=== PATIENT | female | born 1970 | race Caucasian/White ===

== ENCOUNTER 2019-09-18 14:44 | Inpatient (IN) | payer MEDICARE, MEDICAID ==
[2019-09-18 22:18] VITALS: BP 127/90
[2019-09-19] MEDS: Multivitamin Tab PO SCH (09:53)
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
[2019-09-20 06:07] LABS: A1C 7.2 % (4.8-5.6)
[2019-09-20] MEDS: Multivitamin Tab PO SCH (08:14)
--- NOTE | 2019-09-20 13:39 | Internal Medicine Prog Note ---
Internal Medicine Subjective - Subjective Service Date: 09/20/19 Patient seen and examined:: without staff Patient is:: awake Per staff patient has:: no adverse event, no episodes of fall Internal Medicine Objective - Results Recent Labs: Laboratory Last Values Triglycerides 118 mg/dL (30-150) 09/19/19 08:57 Cholesterol 191 mg/dL (<200) 09/19/19 08:57 LDL Cholesterol 137 mg/dL (0-129) H 09/19/19 08:57 HDL Cholesterol 39 mg/dL (>55) L 09/19/19 08:57 - Physical Exam Vitals and I&O: Vital Signs Temp 97.7 F 09/20/19 06:24 Pulse 72 09/20/19 06:24 Resp 18 09/20/19 08:00 BP 104/59 09/20/19 06:24 Pulse Ox 97 09/20/19 06:24 Intake & Output 09/19/19 09/20/19 09/20/19 18:59 06:59 18:59 Intake Total 750 Balance 750 Intake: Oral 750 Other: # Voids 3 # Bowel Movements 1 Active Medications: Current Medications Aripiprazole (Abilify) 5 mg PO DAILY JAMAL; Protocol Stop: 11/19/19 08:59 Last Admin: 09/20/19 08:14 Dose: 5 mg Fluoxetine HCl (Prozac) 10 mg PO DAILY JAMAL; Protocol Stop: 11/19/19 08:59 Last Admin: 09/20/19 08:14 Dose: 10 mg Lorazepam (Ativan) 0.5 mg PO Q4HR PRN; Protocol PRN Reason: Anxiety Stop: 10/18/19 22:17 Multivitamins/Vitamin C (Theragran) 1 tab PO DAILY JAMAL Stop: 11/18/19 08:59 Last Admin: 09/20/19 08:14 Dose: 1 tab Zolpidem Tartrate (Ambien) 5 mg PO HS PRN PRN Reason: Insomnia Stop: 11/17/19 22:17 HEENT: NC/AT Neck: Supple Lungs: CTAB Cardiovascular: RRR, Normal S1, Normal S2 Abdomen: soft - Procedures Procedures: Procedures Procedure Code Date DELIVERY 90015 02/12/95 DX ULTRASOUND-GRAV UTER 88.78 02/12/95 MONITORING NOS 75.34 02/12/95 LOW CERVICAL 74.1 02/12/95 Internal Medicine Assmt/Plan - Assessment Assessment: 1. Chronic pain 2. HTN 3. Morbid obesity - Plan Plan: continue supportive care d/w r.n. reviewed complete medical records
--- NOTE | 2019-09-20 15:04 | Progress Notes ---
DATE: 09/20/2019 Case was discussed with staff of the patient, reviewed records. The patient continues to be delusional about what happened prior to admission. Continues to have poor insight in general. The staff reports she refused medications; however, when I talked to her, she said she was not offered any medication. The patient was started yesterday on Abilify and Prozac and will take this morning, so she was correct about that. She has been on Prozac before and I added Abilify because of her delusional thinking and discussed side effects. We will continue outpatient group therapy, milieu therapy, and adjust medications as needed. JOB# [id number] [facility]
[2019-09-21] MEDS: Multivitamin Tab PO SCH (08:13)
--- NOTE | 2019-09-21 13:14 | Progress Notes ---
DATE: 09/21/2019 Case was discussed with staff of the patient, reviewed records. The patient has been compliant with the medication with no side effects, no sedation, no nausea, no extrapyramidal symptoms. She tolerated the medication with no side effects. She is sleeping better, eating better. She continues to be at times, internally preoccupied, unable to make safe plan for self-care. Working on discharge planning as well. We will continue outpatient group therapy, milieu therapy, adjust medication as needed. JOB# [id number]
--- NOTE | 2019-09-21 16:11 | Internal Medicine Prog Note ---
Internal Medicine Subjective - Subjective Service Date: 09/21/19 Patient seen and examined:: without staff Patient is:: awake Per staff patient has:: no adverse event, no episodes of fall Internal Medicine Objective - Results Recent Labs: Laboratory Last Values Triglycerides 118 mg/dL (30-150) 09/19/19 08:57 Cholesterol 191 mg/dL (<200) 09/19/19 08:57 LDL Cholesterol 137 mg/dL (0-129) H 09/19/19 08:57 HDL Cholesterol 39 mg/dL (>55) L 09/19/19 08:57 - Physical Exam Vitals and I&O: Vital Signs Temp 97.8 F 09/21/19 14:00 Pulse 89 09/21/19 14:00 Resp 20 09/21/19 14:00 BP 148/74 09/21/19 14:00 Pulse Ox 97 09/21/19 14:00 Intake & Output 09/20/19 09/21/19 09/21/19 18:59 06:59 18:59 Intake Total 1150 120 Balance 1150 120 Intake: Oral 1150 120 Other: # Voids 3 # Bowel Movements 1 Active Medications: Current Medications Aripiprazole (Abilify) 5 mg PO DAILY JAMAL; Protocol Stop: 11/19/19 08:59 Last Admin: 09/21/19 08:13 Dose: 5 mg Fluoxetine HCl (Prozac) 10 mg PO DAILY JAMAL; Protocol Stop: 11/19/19 08:59 Last Admin: 09/21/19 08:13 Dose: 10 mg Lorazepam (Ativan) 0.5 mg PO Q4HR PRN; Protocol PRN Reason: Anxiety Stop: 10/18/19 22:17 Multivitamins/Vitamin C (Theragran) 1 tab PO DAILY JAMAL Stop: 11/18/19 08:59 Last Admin: 09/21/19 08:13 Dose: 1 tab Zolpidem Tartrate (Ambien) 5 mg PO HS PRN PRN Reason: Insomnia Stop: 11/17/19 22:17 Last Admin: 09/20/19 20:29 Dose: 5 mg HEENT: NC/AT Neck: Supple Lungs: CTAB Cardiovascular: RRR, Normal S1, Normal S2 Abdomen: soft - Procedures Procedures: Procedures Procedure Code Date DELIVERY 28089 02/12/95 DX ULTRASOUND-GRAV UTER 88.78 02/12/95 MONITORING NOS 75.34 02/12/95 LOW CERVICAL 74.1 02/12/95 Internal Medicine Assmt/Plan - Assessment Assessment: 1. Chronic pain 2. HTN 3. Morbid obesity - Plan Plan: continue supportive care d/w r.n. reviewed complete medical records Nutritional Asmnt/Malnutr-PDOC - Dietary Evaluation Malnutrition Findings (Please click <Entered> for more info): Nutritional Asmnt/Malnutrition Start: 09/21/19 13: 30 Text: Status: Complete Freq: Protocol: Document 09/21/19 13:30 DIAMANTE (Rec: 09/21/19 13:33 DIAMANTE [id number]) Nutritional Asmnt/Malnutrition Patient General Information Nutritional Screening Moderate Risk Diagnosis Acute Psychosis Pertinent Medical Hx/Surgical Hx HTN, Morbid Obesity, Chronic Pain Subjective Information Pt is a 49-year-old female admitted on 09/17 d/t hold for DTS and DTO with agitation and confusion. Pt is eating an estimated 100% of meals Per Meal/Nutrition Activity Record . Dietary is currently providing an estimated 1800 kcals and 90 gm Pro to meet 100% kcal and 100+% Pro needs. Visited pt in community room, she was resting with her feet up, has enjoyed the food so far. Stated she does not follow any particular diet and was living with her sister prior to visiting us. Diet Rx was explained to pt, she had no questions. Spoke with pt nurse Hannah regarding Diet recommendation. Recommend adding CCHO to current diet Rx d/t endocrine dysfunction evidenced by labs (09/17) Glucose 134, POC Glucose 124, (09/16) A1c 7.2%. Anthropometrics HT: 55 WT: 337 LB (153.18 kg) ABW: 178 LB (80.91 kg) BMI: 56.20 (Obese, class III) GI/ Skin Integrity GI: WNL, Soft, Large, Non- tender BM: 09/19 x2 I/O: 1270/Not Noted Skin: WNL, Intact Damien: 22 Diet Order: Cardiac Estimated Energy Needs: (Obese , ABW) 7502-9549 kcals (20-25 kcals/ kg) 65-80g Pro (0.8-1.0 g/kg) 0286-4591 ml (20-25 ml/kg) Current Diet Order/ Nutrition Support Cardiac Patient / S.O Can Pertinent Medications Theragran Pertinent Labs 09/18: LDL 137, HDL 39 09/17: Glucose 134, GFR 76, Albumin 3.1, POC Glucose 124 09/16: A1c 7.2% 09/15: Urine Protein 1+ Nutritional Hx/Data Height 1.65 m Height (Calculated Centimeters) 165.1 Current Weight (lbs) 152.861 kg Weight (Calculated Kilograms) 152.9 Weight (Calculated Grams) 685347.6 [facility] Body Weight 125 LB (56.82 kg) % [facility] Body Weight 270 Body Mass Index (BMI) 56.0 Weight Status Morbidly Obese GI Symptoms Last BM 09/19 x2 Usual diet at home Regular Skin Integrity/Comment: Skin: WNL, Intact Damien: 22 Current %PO Good (75-100%) Estimated Nutritional Goals BEE in Kcals: Adj wt of IBW Calories/Kcals/Kg 20-25 Kcals Calculated 2187-8885 Protein: Adj wt of IBW Protein g/k.8-1.0 Protein Calculated 65-80 Fluid: ml 5017-9008 ml (20-25 ml/kg) Nutritional Problem 2. Problem Problem Impaired nutrient utilization Etiology r/t endocrine dysfunction Signs/Symptoms: aeb labs (09/17) Glucose 134, POC Glucose 124, (09/16) A1c 7.2 %. 1. Problem Problem Obese, class III Etiology r/t chronic energy overconsumption Signs/Symptoms: aeb BMI >40 (56.20). Malnutrition Related to Morbid Obesity Malnutrition related to morbid obesity BMI> or equal to 40 Query Text:(Any 1 Criteria met) Malnutrition related to morbid obesity Yes Intervention/Recommendation Comments Recommend adding CCHO to current Diet Rx. Expected Outcomes/Goals Expected Outcomes/Goals 1.PO intake to continue to meet >75% of estimated nutritional needs. 2.Monitor PO intake, wt, nutrition related labs, and skin integrity. 3.Gradual weight loss (0.5-1.0 LB /week) trending toward IBW preferred. 4.F/U as low risk in 7-10 days , 09/27-09/30.
[2019-09-22] MEDS: Multivitamin Tab PO SCH (08:40)
--- NOTE | 2019-09-22 15:43 | Internal Medicine Prog Note ---
Internal Medicine Subjective - Subjective Service Date: 09/22/19 Patient seen and examined:: without staff Patient is:: awake Per staff patient has:: no adverse event, no episodes of fall Internal Medicine Objective - Results Recent Labs: Laboratory Last Values Triglycerides 118 mg/dL (30-150) 09/19/19 08:57 Cholesterol 191 mg/dL (<200) 09/19/19 08:57 LDL Cholesterol 137 mg/dL (0-129) H 09/19/19 08:57 HDL Cholesterol 39 mg/dL (>55) L 09/19/19 08:57 - Physical Exam Vitals and I&O: Vital Signs Temp 97.3 F 09/22/19 14:00 Pulse 80 09/22/19 14:00 Resp 20 09/22/19 14:00 BP 102/65 09/22/19 14:00 Pulse Ox 97 09/22/19 14:00 Intake & Output 09/21/19 09/22/19 09/22/19 18:59 06:59 18:59 Intake Total 1600 240 Balance 1600 240 Intake: Oral 1600 240 Other: # Voids 4 2 # Bowel Movements 1 Active Medications: Current Medications Aripiprazole (Abilify) 5 mg PO DAILY JAMAL; Protocol Stop: 11/19/19 08:59 Last Admin: 09/22/19 08:40 Dose: 5 mg Fluoxetine HCl (Prozac) 10 mg PO DAILY JAMAL; Protocol Stop: 11/19/19 08:59 Last Admin: 09/22/19 08:40 Dose: 10 mg Lorazepam (Ativan) 0.5 mg PO Q4HR PRN; Protocol PRN Reason: Anxiety Stop: 10/18/19 22:17 Multivitamins/Vitamin C (Theragran) 1 tab PO DAILY JAMAL Stop: 11/18/19 08:59 Last Admin: 09/22/19 08:40 Dose: 1 tab Zolpidem Tartrate (Ambien) 5 mg PO HS PRN PRN Reason: Insomnia Stop: 11/17/19 22:17 Last Admin: 09/21/19 20:21 Dose: 5 mg HEENT: NC/AT Neck: Supple Lungs: CTAB Cardiovascular: RRR, Normal S1, Normal S2 Abdomen: soft - Procedures Procedures: Procedures Procedure Code Date DELIVERY 76717 02/12/95 DX ULTRASOUND-GRAV UTER 88.78 02/12/95 MONITORING NOS 75.34 02/12/95 LOW CERVICAL 74.1 02/12/95 Internal Medicine Assmt/Plan - Assessment Assessment: 1. Chronic pain 2. HTN 3. Morbid obesity - Plan Plan: continue supportive care d/w r.n. reviewed complete medical records Nutritional Asmnt/Malnutr-PDOC - Dietary Evaluation Malnutrition Findings (Please click <Entered> for more info): Nutritional Asmnt/Malnutrition Start: 09/21/19 13: 30 Text: Status: Complete Freq: Protocol: Document 09/21/19 13:30 DIAMANTE (Rec: 09/21/19 13:33 DIAMANTE [id number] [id number]) Nutritional Asmnt/Malnutrition Patient General Information Nutritional Screening Moderate Risk Diagnosis Acute Psychosis Pertinent Medical Hx/Surgical Hx HTN, Morbid Obesity, Chronic Pain Subjective Information Pt is a 49-year-old female admitted on 09/17 d/t hold for DTS and DTO with agitation and confusion. Pt is eating an estimated 100% of meals Per Meal/Nutrition Activity Record . Dietary is currently providing an estimated 1800 kcals and 90 gm Pro to meet 100% kcal and 100+% Pro needs. Visited pt in community room, she was resting with her feet up, has enjoyed the food so far. Stated she does not follow any particular diet and was living with her sister prior to visiting us. Diet Rx was explained to pt, she had no questions. Spoke with pt nurse Hannah regarding Diet recommendation. Recommend adding CCHO to current diet Rx d/t endocrine dysfunction evidenced by labs (09/17) Glucose 134, POC Glucose 124, (09/16) A1c 7.2%. Anthropometrics HT: 55 WT: 337 LB (153.18 kg) ABW: 178 LB (80.91 kg) BMI: 56.20 (Obese, class III) GI/ Skin Integrity GI: WNL, Soft, Large, Non- tender BM: 09/19 x2 I/O: 1270/Not Noted Skin: WNL, Intact Damien: 22 Diet Order: Cardiac Estimated Energy Needs: (Obese , ABW) 5361-0111 kcals (20-25 kcals/ kg) 65-80g Pro (0.8-1.0 g/kg) 5924-3897 ml (20-25 ml/kg) Current Diet Order/ Nutrition Support Cardiac Patient / S.O Can Pertinent Medications Theragran Pertinent Labs 09/18: LDL 137, HDL 39 09/17: Glucose 134, GFR 76, Albumin 3.1, POC Glucose 124 09/16: A1c 7.2% 09/15: Urine Protein 1+ Nutritional Hx/Data Height 1.65 m Height (Calculated Centimeters) 165.1 Current Weight (lbs) 152.861 kg Weight (Calculated Kilograms) 152.9 Weight (Calculated Grams) 082041.6 [place] Body Weight 125 LB (56.82 kg) % [place] Body Weight 270 Body Mass Index (BMI) 56.0 Weight Status Morbidly Obese GI Symptoms Last BM 09/19 x2 Usual diet at home Regular Skin Integrity/Comment: Skin: WNL, Intact Damien: 22 Current %PO Good (75-100%) Estimated Nutritional Goals BEE in Kcals: Adj wt of IBW Calories/Kcals/Kg 20-25 Kcals Calculated 0322-0777 Protein: Adj wt of IBW Protein g/k.8-1.0 Protein Calculated 65-80 Fluid: ml 0542-1894 ml (20-25 ml/kg) Nutritional Problem 2. Problem Problem Impaired nutrient utilization Etiology r/t endocrine dysfunction Signs/Symptoms: aeb labs (09/17) Glucose 134, POC Glucose 124, (09/16) A1c 7.2 %. 1. Problem Problem Obese, class III Etiology r/t chronic energy overconsumption Signs/Symptoms: aeb BMI >40 (56.20). Malnutrition Related to Morbid Obesity Malnutrition related to morbid obesity BMI> or equal to 40 Query Text:(Any 1 Criteria met) Malnutrition related to morbid obesity Yes Intervention/Recommendation Comments Recommend adding CCHO to current Diet Rx. Expected Outcomes/Goals Expected Outcomes/Goals 1.PO intake to continue to meet >75% of estimated nutritional needs. 2.Monitor PO intake, wt, nutrition related labs, and skin integrity. 3.Gradual weight loss (0.5-1.0 LB /week) trending toward IBW preferred. 4.F/U as low risk in 7-10 days , 09/27-09/30.
--- NOTE | 2019-09-22 21:09 | Progress Notes ---
DATE: 09/22/2019 Case was discussed with staff of the patient, reviewed records. The patient in general is calmer. She is sleeping better, eating better. She denies any current intent to harm himself or anyone. She denies any additional visual, auditory or paranoia. Working on discharge plan. The staff will be trying to verify placement and get her placement if she needs to. No side effects with the medication, no sedation, no nausea, no extrapyramidal symptoms. We will continue outpatient group therapy, milieu therapy, adjust medication as needed. JOB# [id number]
[2019-09-23] MEDS: Multivitamin Tab PO SCH (08:35)
--- NOTE | 2019-09-23 15:16 | Internal Medicine Prog Note ---
Internal Medicine Subjective - Subjective Service Date: 09/23/19 Patient seen and examined:: without staff (no fevers, no cough, no chest pain, no sob) Patient is:: awake Per staff patient has:: no adverse event, no episodes of fall Internal Medicine Objective - Results Recent Labs: Laboratory Last Values Triglycerides 118 mg/dL (30-150) 09/19/19 08:57 Cholesterol 191 mg/dL (<200) 09/19/19 08:57 LDL Cholesterol 137 mg/dL (0-129) H 09/19/19 08:57 HDL Cholesterol 39 mg/dL (>55) L 09/19/19 08:57 - Physical Exam Vitals and I&O: Vital Signs Temp 98.0 F 09/23/19 05:56 Pulse 94 09/23/19 05:56 Resp 18 09/23/19 08:00 BP 105/67 09/23/19 05:56 Pulse Ox 95 09/23/19 05:56 Intake & Output 09/22/19 09/23/19 09/23/19 18:59 06:59 18:59 Intake Total 1200 240 Balance 1200 240 Intake: Oral 1200 240 Other: # Voids 3 2 # Bowel Movements 0 Active Medications: Current Medications Aripiprazole (Abilify) 5 mg PO DAILY JAMAL; Protocol Stop: 11/19/19 08:59 Last Admin: 09/23/19 08:35 Dose: 5 mg Fluoxetine HCl (Prozac) 10 mg PO DAILY JAMAL; Protocol Stop: 11/19/19 08:59 Last Admin: 09/23/19 08:35 Dose: 10 mg Lorazepam (Ativan) 0.5 mg PO Q4HR PRN; Protocol PRN Reason: Anxiety Stop: 10/18/19 22:17 Multivitamins/Vitamin C (Theragran) 1 tab PO DAILY JAMAL Stop: 11/18/19 08:59 Last Admin: 09/23/19 08:35 Dose: 1 tab Zolpidem Tartrate (Ambien) 5 mg PO HS PRN PRN Reason: Insomnia Stop: 11/17/19 22:17 Last Admin: 09/22/19 20:13 Dose: 5 mg HEENT: NC/AT Neck: Supple Lungs: CTAB Cardiovascular: RRR, Normal S1, Normal S2 Abdomen: soft Extremities: clear Neurological: no change - Procedures Procedures: Procedures Procedure Code Date DELIVERY 90272 02/12/95 DX ULTRASOUND-GRAV UTER 88.78 02/12/95 MONITORING NOS 75.34 02/12/95 LOW CERVICAL 74.1 02/12/95 Internal Medicine Assmt/Plan - Assessment Assessment: 1. Chronic pain 2. HTN 3. Morbid obesity - Plan Plan: continue supportive care d/w r.n. reviewed complete medical records Nutritional Asmnt/Malnutr-PDOC - Dietary Evaluation Malnutrition Findings (Please click <Entered> for more info): Nutritional Asmnt/Malnutrition Start: 09/21/19 13: 30 Text: Status: Complete Freq: Protocol: Document 09/21/19 13:30 DIAMANTE (Rec: 09/21/19 13:33 DIAMANTE AD-CTXTS -01) Nutritional Asmnt/Malnutrition Patient General Information Nutritional Screening Moderate Risk Diagnosis Acute Psychosis Pertinent Medical Hx/Surgical Hx HTN, Morbid Obesity, Chronic Pain Subjective Information Pt is a 49-year-old female admitted on 09/17 d/t hold for DTS and DTO with agitation and confusion. Pt is eating an estimated 100% of meals Per Meal/Nutrition Activity Record . Dietary is currently providing an estimated 1800 kcals and 90 gm Pro to meet 100% kcal and 100+% Pro needs. Visited pt in community room, she was resting with her feet up, has enjoyed the food so far. Stated she does not follow any particular diet and was living with her sister prior to visiting us. Diet Rx was explained to pt, she had no questions. Spoke with pt nurse Hannah regarding Diet recommendation. Recommend adding CCHO to current diet Rx d/t endocrine dysfunction evidenced by labs (09/17) Glucose 134, POC Glucose 124, (09/16) A1c 7.2%. Anthropometrics HT: 55 WT: 337 LB (153.18 kg) ABW: 178 LB (80.91 kg) BMI: 56.20 (Obese, class III) GI/ Skin Integrity GI: WNL, Soft, Large, Non- tender BM: 09/19 x2 I/O: 1270/Not Noted Skin: WNL, Intact Damien: 22 Diet Order: Cardiac Estimated Energy Needs: (Obese , ABW) 2688-5337 kcals (20-25 kcals/ kg) 65-80g Pro (0.8-1.0 g/kg) 8726-4717 ml (20-25 ml/kg) Current Diet Order/ Nutrition Support Cardiac Patient / S.O Can Pertinent Medications Theragran Pertinent Labs 09/18: LDL 137, HDL 39 09/17: Glucose 134, GFR 76, Albumin 3.1, POC Glucose 124 09/16: A1c 7.2% 09/15: Urine Protein 1+ Nutritional Hx/Data Height 1.65 m Height (Calculated Centimeters) 165.1 Current Weight (lbs) 152.861 kg Weight (Calculated Kilograms) 152.9 Weight (Calculated Grams) 341853.6 [place] Body Weight 125 LB (56.82 kg) % [place] Body Weight 270 Body Mass Index (BMI) 56.0 Weight Status Morbidly Obese GI Symptoms Last BM 09/19 x2 Usual diet at home Regular Skin Integrity/Comment: Skin: WNL, Intact Damien: 22 Current %PO Good (75-100%) Estimated Nutritional Goals BEE in Kcals: Adj wt of IBW Calories/Kcals/Kg 20-25 Kcals Calculated 1719-6350 Protein: Adj wt of IBW Protein g/k.8-1.0 Protein Calculated 65-80 Fluid: ml 1512-5828 ml (20-25 ml/kg) Nutritional Problem 2. Problem Problem Impaired nutrient utilization Etiology r/t endocrine dysfunction Signs/Symptoms: aeb labs (09/17) Glucose 134, POC Glucose 124, (09/16) A1c 7.2 %. 1. Problem Problem Obese, class III Etiology r/t chronic energy overconsumption Signs/Symptoms: aeb BMI >40 (56.20). Malnutrition Related to Morbid Obesity Malnutrition related to morbid obesity BMI> or equal to 40 Query Text:(Any 1 Criteria met) Malnutrition related to morbid obesity Yes Intervention/Recommendation Comments Recommend adding CCHO to current Diet Rx. Expected Outcomes/Goals Expected Outcomes/Goals 1.PO intake to continue to meet >75% of estimated nutritional needs. 2.Monitor PO intake, wt, nutrition related labs, and skin integrity. 3.Gradual weight loss (0.5-1.0 LB /week) trending toward IBW preferred. 4.F/U as low risk in 7-10 days , 09/27-09/30.
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
--- NOTE | 2019-09-24 07:08 | Progress Notes ---
DATE: 09/24/2019 SUBJECTIVE: Today on [id number] evaluation, the patient reports better sleep, less anxiety. She at times guarded, minimizing the interview, disengaged. MENTAL STATUS EXAMINATION: Disengaged, distraught, overwhelmed. No SI. ASSESSMENT AND PLAN: A 49-year-old female, stabilizing with the current adjustment of medication. We will continue with primary psychiatrist's treatment plan and goals. JOB# [id number]
[2019-09-24] MEDS: Multivitamin Tab PO SCH (08:16)
--- NOTE | 2019-09-24 14:12 | Internal Medicine Prog Note ---
Internal Medicine Subjective - Subjective Service Date: 09/24/19 Patient seen and examined:: without staff Patient is:: awake Per staff patient has:: no adverse event, no episodes of fall Internal Medicine Objective - Results Recent Labs: Laboratory Last Values Triglycerides 118 mg/dL (30-150) 09/19/19 08:57 Cholesterol 191 mg/dL (<200) 09/19/19 08:57 LDL Cholesterol 137 mg/dL (0-129) H 09/19/19 08:57 HDL Cholesterol 39 mg/dL (>55) L 09/19/19 08:57 - Physical Exam Vitals and I&O: Vital Signs Temp 98.4 F 09/24/19 06:03 Pulse 79 09/24/19 06:03 Resp 20 09/24/19 06:03 BP 121/68 09/24/19 06:03 Pulse Ox 95 09/24/19 06:03 Intake & Output 09/23/19 09/24/19 09/24/19 18:59 06:59 18:59 Intake Total 1600 240 Balance 1600 240 Intake: Oral 1600 240 Other: # Voids 4 2 # Bowel Movements 1 1 Stool Characteristics Soft Formed Brown Active Medications: Current Medications Aripiprazole (Abilify) 5 mg PO DAILY JAMAL; Protocol Stop: 11/19/19 08:59 Last Admin: 09/24/19 08:16 Dose: 5 mg Fluoxetine HCl (Prozac) 10 mg PO DAILY JAMAL; Protocol Stop: 11/19/19 08:59 Last Admin: 09/24/19 08:15 Dose: 10 mg Lorazepam (Ativan) 0.5 mg PO Q4HR PRN; Protocol PRN Reason: Anxiety Stop: 10/18/19 22:17 Multivitamins/Vitamin C (Theragran) 1 tab PO DAILY JAMAL Stop: 11/18/19 08:59 Last Admin: 09/24/19 08:16 Dose: 1 tab Zolpidem Tartrate (Ambien) 5 mg PO HS PRN PRN Reason: Insomnia Stop: 11/17/19 22:17 Last Admin: 09/23/19 20:09 Dose: 5 mg HEENT: NC/AT Neck: Supple Lungs: CTAB Cardiovascular: RRR, Normal S1, Normal S2 Abdomen: soft Extremities: clear Neurological: no change - Procedures Procedures: Procedures Procedure Code Date DELIVERY 79077 02/12/95 DX ULTRASOUND-GRAV UTER 88.78 02/12/95 MONITORING NOS 75.34 02/12/95 LOW CERVICAL 74.1 02/12/95 Internal Medicine Assmt/Plan - Assessment Assessment: 1. Chronic pain 2. HTN 3. Morbid obesity - Plan Plan: reviewed meds continue supportive care d/w r.n. reviewed complete medical records Nutritional Asmnt/Malnutr-PDOC - Dietary Evaluation Malnutrition Findings (Please click <Entered> for more info): Nutritional Asmnt/Malnutrition Start: 09/21/19 13: 30 Text: Status: Complete Freq: Protocol: Document 09/21/19 13:30 DIAMANTE (Rec: 09/21/19 13:33 DIAMANTE AD-CTXTS -01) Nutritional Asmnt/Malnutrition Patient General Information Nutritional Screening Moderate Risk Diagnosis Acute Psychosis Pertinent Medical Hx/Surgical Hx HTN, Morbid Obesity, Chronic Pain Subjective Information Pt is a 49-year-old female admitted on 09/17 d/t hold for DTS and DTO with agitation and confusion. Pt is eating an estimated 100% of meals Per Meal/Nutrition Activity Record . Dietary is currently providing an estimated 1800 kcals and 90 gm Pro to meet 100% kcal and 100+% Pro needs. Visited pt in community room, she was resting with her feet up, has enjoyed the food so far. Stated she does not follow any particular diet and was living with her sister prior to visiting us. Diet Rx was explained to pt, she had no questions. Spoke with pt nurse Hannah regarding Diet recommendation. Recommend adding CCHO to current diet Rx d/t endocrine dysfunction evidenced by labs (09/17) Glucose 134, POC Glucose 124, (09/16) A1c 7.2%. Anthropometrics HT: 55 WT: 337 LB (153.18 kg) ABW: 178 LB (80.91 kg) BMI: 56.20 (Obese, class III) GI/ Skin Integrity GI: WNL, Soft, Large, Non- tender BM: 09/19 x2 I/O: 1270/Not Noted Skin: WNL, Intact Damien: 22 Diet Order: Cardiac Estimated Energy Needs: (Obese , ABW) 9423-1968 kcals (20-25 kcals/ kg) 65-80g Pro (0.8-1.0 g/kg) 7701-6086 ml (20-25 ml/kg) Current Diet Order/ Nutrition Support Cardiac Patient / S.O Can Pertinent Medications Theragran Pertinent Labs 09/18: LDL 137, HDL 39 09/17: Glucose 134, GFR 76, Albumin 3.1, POC Glucose 124 09/16: A1c 7.2% 09/15: Urine Protein 1+ Nutritional Hx/Data Height 1.65 m Height (Calculated Centimeters) 165.1 Current Weight (lbs) 152.861 kg Weight (Calculated Kilograms) 152.9 Weight (Calculated Grams) 832135.6 [place] Body Weight 125 LB (56.82 kg) % [place] Body Weight 270 Body Mass Index (BMI) 56.0 Weight Status Morbidly Obese GI Symptoms Last BM 09/19 x2 Usual diet at home Regular Skin Integrity/Comment: Skin: WNL, Intact Damien: 22 Current %PO Good (75-100%) Estimated Nutritional Goals BEE in Kcals: Adj wt of IBW Calories/Kcals/Kg 20-25 Kcals Calculated 9829-9848 Protein: Adj wt of IBW Protein g/k.8-1.0 Protein Calculated 65-80 Fluid: ml 4261-4841 ml (20-25 ml/kg) Nutritional Problem 2. Problem Problem Impaired nutrient utilization Etiology r/t endocrine dysfunction Signs/Symptoms: aeb labs (09/17) Glucose 134, POC Glucose 124, (09/16) A1c 7.2 %. 1. Problem Problem Obese, class III Etiology r/t chronic energy overconsumption Signs/Symptoms: aeb BMI >40 (56.20). Malnutrition Related to Morbid Obesity Malnutrition related to morbid obesity BMI> or equal to 40 Query Text:(Any 1 Criteria met) Malnutrition related to morbid obesity Yes Intervention/Recommendation Comments Recommend adding CCHO to current Diet Rx. Expected Outcomes/Goals Expected Outcomes/Goals 1.PO intake to continue to meet >75% of estimated nutritional needs. 2.Monitor PO intake, wt, nutrition related labs, and skin integrity. 3.Gradual weight loss (0.5-1.0 LB /week) trending toward IBW preferred. 4.F/U as low risk in 7-10 days , 09/27-09/30.
[2019-09-25] MEDS: Multivitamin Tab PO SCH (08:44)
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
--- NOTE | 2019-09-25 14:48 | Internal Medicine Prog Note ---
Internal Medicine Subjective - Subjective Service Date: 09/25/19 Patient seen and examined:: without staff Patient is:: awake Per staff patient has:: no adverse event, no episodes of fall Internal Medicine Objective - Results Recent Labs: Laboratory Last Values Triglycerides 118 mg/dL (30-150) 09/19/19 08:57 Cholesterol 191 mg/dL (<200) 09/19/19 08:57 LDL Cholesterol 137 mg/dL (0-129) H 09/19/19 08:57 HDL Cholesterol 39 mg/dL (>55) L 09/19/19 08:57 - Physical Exam Vitals and I&O: Vital Signs Temp 98.6 F 09/25/19 05:40 Pulse 74 09/25/19 05:40 Resp 16 09/25/19 07:23 BP 115/63 09/25/19 05:40 Pulse Ox 97 09/25/19 05:40 Intake & Output 09/24/19 09/25/19 09/25/19 18:59 06:59 18:59 Intake Total 1200 240 Balance 1200 240 Intake: Oral 1200 240 Other: # Voids 4 2 # Bowel Movements 1 0 Stool Characteristics Soft Soft Soft Formed Formed Formed Brown Brown Brown Active Medications: Current Medications Aripiprazole (Abilify) 5 mg PO DAILY JAMAL; Protocol Stop: 11/19/19 08:59 Last Admin: 09/25/19 08:44 Dose: 5 mg Fluoxetine HCl (Prozac) 10 mg PO DAILY JAMAL; Protocol Stop: 11/19/19 08:59 Last Admin: 09/25/19 08:44 Dose: 10 mg Ibuprofen (Motrin) 400 mg PO Q4H PRN PRN Reason: Pain (Severe 7-10) Stop: 11/24/19 04:05 Last Admin: 09/25/19 08:44 Dose: 400 mg Lorazepam (Ativan) 0.5 mg PO Q4HR PRN; Protocol PRN Reason: Anxiety Stop: 10/18/19 22:17 Multivitamins/Vitamin C (Theragran) 1 tab PO DAILY JAMAL Stop: 11/18/19 08:59 Last Admin: 09/25/19 08:44 Dose: 1 tab Zolpidem Tartrate (Ambien) 5 mg PO HS PRN PRN Reason: Insomnia Stop: 11/17/19 22:17 Last Admin: 09/24/19 20:46 Dose: 5 mg General: weak HEENT: NC/AT Neck: Supple Lungs: CTAB Cardiovascular: RRR, Normal S1, Normal S2 Abdomen: soft Extremities: clear Neurological: no change - Procedures Procedures: Procedures Procedure Code Date DELIVERY 40426 02/12/95 DX ULTRASOUND-GRAV UTER 88.78 02/12/95 MONITORING NOS 75.34 02/12/95 LOW CERVICAL 74.1 02/12/95 Internal Medicine Assmt/Plan - Assessment Assessment: 1. Chronic pain 2. HTN 3. Morbid obesity - Plan Plan: reviewed meds continue supportive care d/w r.n. reviewed complete medical records Nutritional Asmnt/Malnutr-PDOC - Dietary Evaluation Malnutrition Findings (Please click <Entered> for more info): Nutritional Asmnt/Malnutrition Start: 09/21/19 13: 30 Text: Status: Complete Freq: Protocol: Document 09/21/19 13:30 DIAMANTE (Rec: 09/21/19 13:33 DIAMANTE AD-CTXTS -01) Nutritional Asmnt/Malnutrition Patient General Information Nutritional Screening Moderate Risk Diagnosis Acute Psychosis Pertinent Medical Hx/Surgical Hx HTN, Morbid Obesity, Chronic Pain Subjective Information Pt is a 49-year-old female admitted on 09/17 d/t hold for DTS and DTO with agitation and confusion. Pt is eating an estimated 100% of meals Per Meal/Nutrition Activity Record . Dietary is currently providing an estimated 1800 kcals and 90 gm Pro to meet 100% kcal and 100+% Pro needs. Visited pt in community room, she was resting with her feet up, has enjoyed the food so far. Stated she does not follow any particular diet and was living with her sister prior to visiting us. Diet Rx was explained to pt, she had no questions. Spoke with pt nurse Hannah regarding Diet recommendation. Recommend adding CCHO to current diet Rx d/t endocrine dysfunction evidenced by labs (09/17) Glucose 134, POC Glucose 124, (09/16) A1c 7.2%. Anthropometrics HT: 55 WT: 337 LB (153.18 kg) ABW: 178 LB (80.91 kg) BMI: 56.20 (Obese, class III) GI/ Skin Integrity GI: WNL, Soft, Large, Non- tender BM: 09/19 x2 I/O: 1270/Not Noted Skin: WNL, Intact Damien: 22 Diet Order: Cardiac Estimated Energy Needs: (Obese , ABW) 2282-8421 kcals (20-25 kcals/ kg) 65-80g Pro (0.8-1.0 g/kg) 7823-9379 ml (20-25 ml/kg) Current Diet Order/ Nutrition Support Cardiac Patient / S.O Can Pertinent Medications Theragran Pertinent Labs 09/18: LDL 137, HDL 39 09/17: Glucose 134, GFR 76, Albumin 3.1, POC Glucose 124 09/16: A1c 7.2% 09/15: Urine Protein 1+ Nutritional Hx/Data Height 1.65 m Height (Calculated Centimeters) 165.1 Current Weight (lbs) 152.861 kg Weight (Calculated Kilograms) 152.9 Weight (Calculated Grams) 157556.6 [place] Body Weight 125 LB (56.82 kg) % [place] Body Weight 270 Body Mass Index (BMI) 56.0 Weight Status Morbidly Obese GI Symptoms Last BM 09/19 x2 Usual diet at home Regular Skin Integrity/Comment: Skin: WNL, Intact Dmaien: 22 Current %PO Good (75-100%) Estimated Nutritional Goals BEE in Kcals: Adj wt of IBW Calories/Kcals/Kg 20-25 Kcals Calculated 5680-0237 Protein: Adj wt of IBW Protein g/k.8-1.0 Protein Calculated 65-80 Fluid: ml 9453-2813 ml (20-25 ml/kg) Nutritional Problem 2. Problem Problem Impaired nutrient utilization Etiology r/t endocrine dysfunction Signs/Symptoms: aeb labs (09/17) Glucose 134, POC Glucose 124, (09/16) A1c 7.2 %. 1. Problem Problem Obese, class III Etiology r/t chronic energy overconsumption Signs/Symptoms: aeb BMI >40 (56.20). Malnutrition Related to Morbid Obesity Malnutrition related to morbid obesity BMI> or equal to 40 Query Text:(Any 1 Criteria met) Malnutrition related to morbid obesity Yes Intervention/Recommendation Comments Recommend adding CCHO to current Diet Rx. Expected Outcomes/Goals Expected Outcomes/Goals 1.PO intake to continue to meet >75% of estimated nutritional needs. 2.Monitor PO intake, wt, nutrition related labs, and skin integrity. 3.Gradual weight loss (0.5-1.0 LB /week) trending toward IBW preferred. 4.F/U as low risk in 7-10 days , 09/27-09/30.
[2019-09-26] MEDS: Multivitamin Tab PO SCH (08:28)
--- NOTE | 2019-09-26 10:56 | Internal Medicine Prog Note ---
Internal Medicine Subjective - Subjective Service Date: 09/26/19 Patient seen and examined:: without staff Patient is:: awake Per staff patient has:: no adverse event, no episodes of fall Internal Medicine Objective - Results Recent Labs: Laboratory Last Values Triglycerides 118 mg/dL (30-150) 09/19/19 08:57 Cholesterol 191 mg/dL (<200) 09/19/19 08:57 LDL Cholesterol 137 mg/dL (0-129) H 09/19/19 08:57 HDL Cholesterol 39 mg/dL (>55) L 09/19/19 08:57 - Physical Exam Vitals and I&O: Vital Signs Temp 97.3 F 09/26/19 10:32 Pulse 88 09/26/19 10:32 Resp 17 09/26/19 10:32 BP 129/70 09/26/19 10:32 Pulse Ox 98 09/26/19 10:32 Intake & Output 09/25/19 09/26/19 09/26/19 18:59 06:59 18:59 Intake Total 1200 Balance 1200 Intake: Oral 1200 Other: # Voids 4 # Bowel Movements 1 Stool Characteristics Soft Soft Formed Formed Brown Brown Active Medications: Current Medications Aripiprazole (Abilify) 5 mg PO DAILY JAMAL; Protocol Stop: 11/19/19 08:59 Last Admin: 09/26/19 08:28 Dose: 5 mg Fluoxetine HCl (Prozac) 10 mg PO DAILY JAMAL; Protocol Stop: 11/19/19 08:59 Last Admin: 09/26/19 08:28 Dose: 10 mg Ibuprofen (Motrin) 400 mg PO Q4H PRN PRN Reason: Pain (Severe 7-10) Stop: 11/24/19 04:05 Last Admin: 09/26/19 06:30 Dose: 400 mg Lorazepam (Ativan) 0.5 mg PO Q4HR PRN; Protocol PRN Reason: Anxiety Stop: 10/18/19 22:17 Multivitamins/Vitamin C (Theragran) 1 tab PO DAILY JAMAL Stop: 11/18/19 08:59 Last Admin: 09/26/19 08:28 Dose: 1 tab Zolpidem Tartrate (Ambien) 5 mg PO HS PRN PRN Reason: Insomnia Stop: 11/17/19 22:17 Last Admin: 09/25/19 23:34 Dose: 5 mg General: weak HEENT: NC/AT Neck: Supple Lungs: CTAB Cardiovascular: RRR, Normal S1, Normal S2 Abdomen: soft Extremities: clear Neurological: no change - Procedures Procedures: Procedures Procedure Code Date DELIVERY 05756 02/12/95 DX ULTRASOUND-GRAV UTER 88.78 02/12/95 MONITORING NOS 75.34 02/12/95 LOW CERVICAL 74.1 02/12/95 Internal Medicine Assmt/Plan - Assessment Assessment: 1. Chronic pain 2. HTN 3. Morbid obesity - Plan Plan: discharge today reviewed complete medical records Nutritional Asmnt/Malnutr-PDOC - Dietary Evaluation Malnutrition Findings (Please click <Entered> for more info): Nutritional Asmnt/Malnutrition Start: 09/21/19 13: 30 Text: Status: Complete Freq: Protocol: Document 09/21/19 13:30 DIAMANTE (Rec: 09/21/19 13:33 DIAMANTE AD-CTXTS -01) Nutritional Asmnt/Malnutrition Patient General Information Nutritional Screening Moderate Risk Diagnosis Acute Psychosis Pertinent Medical Hx/Surgical Hx HTN, Morbid Obesity, Chronic Pain Subjective Information Pt is a 49-year-old female admitted on 09/17 d/t hold for DTS and DTO with agitation and confusion. Pt is eating an estimated 100% of meals Per Meal/Nutrition Activity Record . Dietary is currently providing an estimated 1800 kcals and 90 gm Pro to meet 100% kcal and 100+% Pro needs. Visited pt in community room, she was resting with her feet up, has enjoyed the food so far. Stated she does not follow any particular diet and was living with her sister prior to visiting us. Diet Rx was explained to pt, she had no questions. Spoke with pt nurse Hannah regarding Diet recommendation. Recommend adding CCHO to current diet Rx d/t endocrine dysfunction evidenced by labs (09/17) Glucose 134, POC Glucose 124, (09/16) A1c 7.2%. Anthropometrics HT: 55 WT: 337 LB (153.18 kg) ABW: 178 LB (80.91 kg) BMI: 56.20 (Obese, class III) GI/ Skin Integrity GI: WNL, Soft, Large, Non- tender BM: 09/19 x2 I/O: 1270/Not Noted Skin: WNL, Intact Damien: 22 Diet Order: Cardiac Estimated Energy Needs: (Obese , ABW) 9348-2521 kcals (20-25 kcals/ kg) 65-80g Pro (0.8-1.0 g/kg) 6859-5198 ml (20-25 ml/kg) Current Diet Order/ Nutrition Support Cardiac Patient / S.O Can Pertinent Medications Theragran Pertinent Labs 09/18: LDL 137, HDL 39 09/17: Glucose 134, GFR 76, Albumin 3.1, POC Glucose 124 09/16: A1c 7.2% 09/15: Urine Protein 1+ Nutritional Hx/Data Height 1.65 m Height (Calculated Centimeters) 165.1 Current Weight (lbs) 152.861 kg Weight (Calculated Kilograms) 152.9 Weight (Calculated Grams) 171283.6 [place] Body Weight 125 LB (56.82 kg) % [place] Body Weight 270 Body Mass Index (BMI) 56.0 Weight Status Morbidly Obese GI Symptoms Last BM 09/19 x2 Usual diet at home Regular Skin Integrity/Comment: Skin: WNL, Intact Damien: 22 Current %PO Good (75-100%) Estimated Nutritional Goals BEE in Kcals: Adj wt of IBW Calories/Kcals/Kg 20-25 Kcals Calculated 5029-2778 Protein: Adj wt of IBW Protein g/k.8-1.0 Protein Calculated 65-80 Fluid: ml 6270-2506 ml (20-25 ml/kg) Nutritional Problem 2. Problem Problem Impaired nutrient utilization Etiology r/t endocrine dysfunction Signs/Symptoms: aeb labs (09/17) Glucose 134, POC Glucose 124, (09/16) A1c 7.2 %. 1. Problem Problem Obese, class III Etiology r/t chronic energy overconsumption Signs/Symptoms: aeb BMI >40 (56.20). Malnutrition Related to Morbid Obesity Malnutrition related to morbid obesity BMI> or equal to 40 Query Text:(Any 1 Criteria met) Malnutrition related to morbid obesity Yes Intervention/Recommendation Comments Recommend adding CCHO to current Diet Rx. Expected Outcomes/Goals Expected Outcomes/Goals 1.PO intake to continue to meet >75% of estimated nutritional needs. 2.Monitor PO intake, wt, nutrition related labs, and skin integrity. 3.Gradual weight loss (0.5-1.0 LB /week) trending toward IBW preferred. 4.F/U as low risk in 7-10 days , 09/27-09/30.
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
== END 2019-09-26 12:45 | disposition home or self-care (01) | DRG 885 ==
LOC: GERO 20:10
PROVIDERS: ADMIT Psychiatry & Neurology Psychiatry; ATTEND Psychiatry & Neurology Psychiatry
DX: F25.0 Schizoaffective disorder, bipolar type (principal); Z68.43 Body mass index [BMI] 50.0-59.9, adult; F19.10 Other psychoactive substance abuse, uncomplicated; F12.10 Cannabis abuse, uncomplicated; G89.29 Other chronic pain; E66.01 Morbid (severe) obesity due to excess calories; I10 Essential (primary) hypertension
CPT/HCPCS: 36415-UA; 80061-TC; 83036-90; 90899; G0410